=== PATIENT | female | born 1980 | race Two or more races ===

== ENCOUNTER 2018-01-06 10:29 | Outpatient (CLI) | payer OTHER | END 2018-01-06 10:34 | disposition home or self-care (01) | LOC: RX STUDY 10:29 | DX: N91.2 Amenorrhea, unspecified (principal); R10.2 Pelvic and perineal pain ==

== ENCOUNTER → 2018-01-06 | Outpatient (CLI) | payer OTHER | END | disposition home or self-care (01) | LOC: SONOGRAMA 15:04 | DX: N84.0 Polyp of corpus uteri (principal) ==

== ENCOUNTER 2018-01-25 04:40 | Day surgery (SDC) | payer OTHER | END 2018-01-25 13:25 | disposition home or self-care (01) | LOC: CIR.AMB 04:40 | DX: N84.0 Polyp of corpus uteri (principal) ==

== ENCOUNTER 2021-03-27 08:31 | Outpatient (CLI) | payer OTHER | END 2021-03-27 08:54 | disposition home or self-care (01) | LOC: SONOGRAMA 08:31 → MAMO-SONO 10:00 | PROVIDERS: ATTEND Obstetrics & Gynecology Reproductive Endocrinology | DX: D25.0 Submucous leiomyoma of uterus (principal); N85.8 Other specified noninflammatory disorders of uterus ==